=== PATIENT | female | born 1950 | race Caucasian/White ===

== ENCOUNTER 2016-08-05 13:57 | Outpatient (CLI) | payer MEDICARE, OTHER | END 2016-08-05 13:58 | disposition home or self-care (01) | DX: I48.1 Persistent atrial fibrillation (principal); Z79.01 Long term (current) use of anticoagulants ==

== ENCOUNTER 2016-08-12 11:19 | Outpatient (CLI) | payer MEDICARE, OTHER | END 2016-08-12 11:20 | disposition home or self-care (01) | DX: Z79.01 Long term (current) use of anticoagulants (principal); I48.1 Persistent atrial fibrillation ==

== ENCOUNTER 2016-08-29 12:56 | Outpatient (CLI) | payer MEDICARE, OTHER | END 2016-08-29 12:57 | disposition home or self-care (01) | DX: I48.1 Persistent atrial fibrillation (principal); Z79.01 Long term (current) use of anticoagulants ==

== ENCOUNTER 2016-09-05 12:35 | Outpatient (CLI) | payer MEDICARE, OTHER | END 2016-09-05 12:36 | disposition home or self-care (01) | DX: Z79.01 Long term (current) use of anticoagulants (principal); I48.1 Persistent atrial fibrillation ==

== ENCOUNTER 2016-09-30 12:31 | Outpatient (CLI) | payer MEDICARE, OTHER | END 2016-09-30 12:32 | disposition home or self-care (01) | DX: I48.1 Persistent atrial fibrillation (principal); Z79.01 Long term (current) use of anticoagulants ==

== ENCOUNTER 2016-10-07 12:51 | Outpatient (CLI) | payer MEDICARE, OTHER | END 2016-10-07 12:52 | disposition home or self-care (01) | DX: I48.1 Persistent atrial fibrillation (principal); Z79.01 Long term (current) use of anticoagulants ==

== ENCOUNTER 2016-10-16 12:37 | Outpatient (CLI) | payer MEDICARE, OTHER | END 2016-10-16 12:38 | disposition home or self-care (01) | DX: I48.1 Persistent atrial fibrillation (principal); Z79.01 Long term (current) use of anticoagulants ==

== ENCOUNTER 2016-10-30 13:04 | Outpatient (CLI) | payer MEDICARE, OTHER | END 2016-10-30 13:05 | disposition home or self-care (01) | DX: I48.1 Persistent atrial fibrillation (principal); Z79.01 Long term (current) use of anticoagulants ==

== ENCOUNTER 2016-11-03 12:37 | Outpatient (CLI) | payer MEDICARE, OTHER | END 2016-11-03 12:38 | disposition home or self-care (01) | DX: I48.1 Persistent atrial fibrillation (principal); Z79.01 Long term (current) use of anticoagulants ==

== ENCOUNTER 2016-11-13 11:15 | Outpatient (CLI) | payer MEDICARE, OTHER | END 2016-11-13 11:16 | disposition home or self-care (01) | DX: Z79.01 Long term (current) use of anticoagulants (principal); I48.1 Persistent atrial fibrillation ==

== ENCOUNTER 2016-11-24 10:14 | Outpatient (CLI) | payer MEDICARE, OTHER | END 2016-11-24 10:15 | disposition home or self-care (01) | DX: Z79.01 Long term (current) use of anticoagulants (principal); I48.0 Paroxysmal atrial fibrillation ==

== ENCOUNTER 2016-12-11 08:00 | Outpatient (CLI) | payer MEDICARE, OTHER | END 2016-12-11 08:01 | disposition home or self-care (01) | DX: Z79.01 Long term (current) use of anticoagulants (principal); I48.1 Persistent atrial fibrillation ==

== ENCOUNTER 2017-01-05 12:42 | Outpatient (CLI) | payer MEDICARE, OTHER ==
[2017-01-05 18:12] LABS: INR 2.4 (0.8-1.2); PT - PROTHROMBIN TIME 26.8 secs (9.9-12.6)
== END 2017-01-05 12:43 | disposition home or self-care (01) ==
LOC: LAB.F 12:42
PROVIDERS: ATTEND Pharmacist
DX: Z79.01 Long term (current) use of anticoagulants (principal)
CPT/HCPCS: 36415; 85610

== ENCOUNTER 2017-01-28 09:07 | Outpatient (CLI) | payer MEDICARE, OTHER ==
[2017-01-28 18:36] LABS: INR 1.7 (0.8-1.2); PT - PROTHROMBIN TIME 19.6 secs (9.9-12.6)
== END 2017-01-28 09:08 | disposition home or self-care (01) ==
LOC: LAB.F 09:07
PROVIDERS: ATTEND Pharmacist
DX: Z79.01 Long term (current) use of anticoagulants (principal)
CPT/HCPCS: 36415; 85610

== ENCOUNTER 2017-02-19 12:58 | Outpatient (CLI) | payer MEDICARE, OTHER ==
[2017-02-19 18:46] LABS: INR 1.9 (0.8-1.2); PT - PROTHROMBIN TIME 21.2 secs (9.9-12.6)
== END 2017-02-19 12:59 | disposition home or self-care (01) ==
LOC: LAB.F 12:58
PROVIDERS: ATTEND Pharmacist
DX: Z79.01 Long term (current) use of anticoagulants (principal); I48.1 Persistent atrial fibrillation
CPT/HCPCS: 36415; 85610

== ENCOUNTER 2017-03-23 13:50 | Outpatient (CLI) | payer MEDICARE, OTHER ==
[2017-03-23 18:01] LABS: PT - PROTHROMBIN TIME 45.4 secs (9.9-12.6)
== END 2017-03-23 13:51 | disposition home or self-care (01) ==
LOC: LAB.F 13:50
PROVIDERS: ATTEND Pharmacist
DX: Z79.01 Long term (current) use of anticoagulants (principal)
CPT/HCPCS: 36415; 85610

== ENCOUNTER 2017-04-02 08:41 | Outpatient (CLI) | payer MEDICARE, OTHER ==
[2017-04-02 10:41] LABS: INR 2.7 (0.8-1.2); PT - PROTHROMBIN TIME 30.5 secs (9.9-12.6)
== END 2017-04-02 08:42 | disposition home or self-care (01) ==
LOC: LAB.F 08:41
PROVIDERS: ATTEND Pharmacist
DX: Z79.01 Long term (current) use of anticoagulants (principal)
CPT/HCPCS: 36415; 85610

== ENCOUNTER 2017-04-16 14:31 | Outpatient (CLI) | payer MEDICARE, OTHER ==
[2017-04-16 18:00] LABS: INR 1.9 (0.8-1.2); PT - PROTHROMBIN TIME 21.2 secs (9.9-12.6)
== END 2017-04-16 14:32 | disposition home or self-care (01) ==
LOC: LAB.F 14:31
PROVIDERS: ATTEND Pharmacist
DX: I48.1 Persistent atrial fibrillation (principal); Z79.01 Long term (current) use of anticoagulants
CPT/HCPCS: 36415; 85610

== ENCOUNTER 2017-04-24 10:57 | Outpatient (CLI) | payer MEDICARE, OTHER ==
[2017-04-24 18:20] LABS: INR 1.6 (0.8-1.2); PT - PROTHROMBIN TIME 18.7 secs (9.9-12.6)
== END 2017-04-24 10:58 | disposition home or self-care (01) ==
LOC: LAB.F 10:57
PROVIDERS: ATTEND Pharmacist
DX: Z79.01 Long term (current) use of anticoagulants (principal); I48.1 Persistent atrial fibrillation
CPT/HCPCS: 36415; 85610

== ENCOUNTER 2017-05-11 13:39 | Outpatient (CLI) | payer MEDICARE, OTHER ==
[2017-05-11 17:55] LABS: INR 4.4 (0.8-1.2); PT - PROTHROMBIN TIME 50.3 secs (9.9-12.6)
== END 2017-05-11 13:40 | disposition home or self-care (01) ==
LOC: LAB.F 13:39
PROVIDERS: ATTEND Pharmacist
DX: Z79.01 Long term (current) use of anticoagulants (principal); I48.1 Persistent atrial fibrillation
CPT/HCPCS: 36415; 85610

== ENCOUNTER 2017-05-19 12:52 | Outpatient (CLI) | payer MEDICARE, OTHER ==
[2017-05-19 18:12] LABS: INR 2.1 (0.8-1.2); PT - PROTHROMBIN TIME 23.7 secs (9.9-12.6)
== END 2017-05-19 12:53 | disposition home or self-care (01) ==
LOC: LAB.F 12:52
PROVIDERS: ATTEND Pharmacist
DX: Z79.01 Long term (current) use of anticoagulants (principal); I48.1 Persistent atrial fibrillation
CPT/HCPCS: 36415; 85610

== ENCOUNTER 2019-12-25 21:57 | Outpatient (CLI) | payer MEDICARE, OTHER | END 2019-12-25 21:58 | disposition home or self-care (01) | LOC: EMS 21:57 | PROVIDERS: ATTEND Surgery | DX: R06.00 Dyspnea, unspecified (principal); R51 Headache | CPT/HCPCS: A0425; A0429 ==

== ENCOUNTER 2019-12-25 22:31 | Emergency (ER) | payer MEDICARE, OTHER ==
--- NOTE | 2019-12-25 22:40 | ED Physician Documentation ---
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 patient was gardening this evening. upon standing up, she became lightheaded and had dizziness, felt like she might pass out. She describes shortness of breath and midline chest pressure along with diaphoresis. She walked into her house, but had to stop every few steps due to the symptoms, particularly the shortness of breath (also noting the chest pressure was worse with exertion). By the time of ED arrival, symptoms have resolved without specific intervention She took aspirin earlier in the day due to a right-sided headache she has had for a few days. She also notes she fell approximately 10 days ago, tripped and fell and struck her head on the ground. Denies LOC, IVORY developed later that day Review of Systems Constitutional: denies: Fever, Chills, Myalgias, Sweats Cardiac: reports: Chest pain / pressure (resolved). denies: Palpitations, Pedal edema, Calf pain Respiratory: reports: Dyspnea. denies: Cough, Hemoptysis, Wheezing GI: reports: Reviewed and negative Musculoskeletal: reports: Reviewed and negative Neurologic: reports: Generalized weakness (resolved), Headache, Head injury. 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 Cardiovascular: Valve replacement - Present Medications Home Medications: Ambulatory Orders Medication Instructions Recorded Confirmed Bupropion HCl [Bupropion Xl] 300 mg PO DAILY 03/05/13 12/26/19 Rosuvastatin [Crestor] 40 mg PO QPM 03/05/13 12/26/19 Sotalol HCl [Sotalol] 80 mg PO BID 03/05/13 12/26/19 Apixaban [Eliquis] 5 mg PO BID 12/25/19 12/26/19 Cholecalciferol [Vitamin D3] 1,000 unit PO DAILY 12/26/19 12/26/19 Cyanocobalamin (Vitamin B-12) 1,000 mcg PO DAILY 12/26/19 12/26/19 [Vitamin B-12] SUMAtriptan [Imitrex] 100 mg PO DAILY PRN 12/26/19 12/26/19 Sertraline HCl 200 mg PO DAILY 12/26/19 12/26/19 - Allergies Allergies/Adverse Reactions: Allergies Allergy/AdvReac Type Severity Reaction Status Date / Time erythromycin base Allergy Rash Verified 12/26/19 05:44 [Erythromycin Base] prochlorperazine maleate * Allergy tongue Verified 12/26/19 05:44 [From Compazine] swelling quinidine Allergy fever Verified 12/26/19 05:44 SNRI AdvReac Unknown Uncoded 12/26/19 05:44 - Social History Does the pt smoke?: No Smoking Status: Never smoker Does the pt drink ETOH?: Yes Does the pt have substance abuse?: No - POLST Patient has POLST: No PD ED PE NORMAL - Vitals Vital signs reviewed: Yes - General General: Alert and oriented X 3, No acute distress, Well developed/nourished - HEENT HEENT: Atraumatic, PERRL, EOMI, Moist mucous membranes - Neck Neck: Supple, no meningeal sign - Cardiac Cardiac: No murmur, No gallop, No rub - Respiratory Respiratory: No respiratory distress, Clear bilaterally - Abdomen Abdomen: Soft, Non tender - Derm Derm: Normal color, Warm and dry - Extremities Extremities: No edema - Neuro Neuro: Alert and oriented X 3, 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, No motor deficit, No sensory deficit, Normal speech Eye Opening: Spontaneous Motor: Obeys Commands Verbal: Oriented GCS Score: 15 PD ED PE EXPANDED - Cardiac Cardiac: Regular Rate, Irregularly irregular Results - Vitals Vitals: Vital Signs - 24 hr 12/25/19 12/25/19 12/25/19 22:42 22:55 23:05 Temperature 37 C Heart Rate 94 97 92 Respiratory 18 26 H 19 Rate Blood Pressure 166/118 H 166/118 H 127/77 O2 Saturation 95 96 96 12/26/19 12/26/19 12/26/19 00:18 01:15 02:00 Temperature 36.3 C L Heart Rate 86 83 Respiratory 15 16 Rate Blood Pressure 143/100 H 127/89 H O2 Saturation 98 98 12/26/19 12/26/19 12/26/19 03:21 04:11 04:47 Temperature 36.7 C Heart Rate 80 79 86 Respiratory 20 19 16 Rate Blood Pressure 149/82 H 122/72 146/115 H O2 Saturation 99 99 100 12/26/19 12/26/19 12/26/19 05:51 06:10 06:48 Temperature 36.7 C 36.7 C 36.5 C Heart Rate 73 72 83 Respiratory 16 22 15 Rate Blood Pressure 134/85 H 148/97 H 184/81 H O2 Saturation 98 98 100 Oxygen O2 Source Room air - EKG (time done) No standard instances Rate: Rate (enter#) (88) Rhythm: Atrial flutter, Atrial fibrillation [place]: Normal Ischemia: ST depression (V4-V6, I, aVL) - Labs Labs: Laboratory Tests 12/25/19 12/25/19 12/25/19 21:58 21:58 21:58 WBC 10.3 RBC 4.63 Hgb 13.8 Hct 41.6 MCV 89.8 MCH 29.8 MCHC 33.2 RDW 13.4 Plt Count 282 MPV 9.8 Neut # (Auto) 7.5 H Lymph # (Auto) 1.7 [place] # (Auto) 1.0 Eos # (Auto) 0.1 Baso # (Auto) 0.1 Absolute Nucleated RBC 0.00 Nucleated RBC % 0.0 D-Dimer Sodium 138 Potassium 3.7 Chloride 106 Carbon Dioxide 22 Anion Gap 10.0 BUN 23 H Creatinine 1.1 H Estimated GFR (MDRD) 49 L Glucose 111 H Calcium 9.2 Total Bilirubin 0.6 AST 18 ALT 13 Alkaline Phosphatase 114 Troponin I High Sens 13.9 B-Natriuretic Peptide Total Protein 7.7 Albumin 4.0 Globulin 3.7 Albumin/Globulin Ratio 1.1 Lipase 38 12/25/19 12/25/19 12/26/19 21:58 23:12 03:07 WBC RBC Hgb Hct MCV MCH MCHC RDW Plt Count MPV Neut # (Auto) Lymph # (Auto) [place] # (Auto) Eos # (Auto) Baso # (Auto) Absolute Nucleated RBC Nucleated RBC % D-Dimer 201.8 Sodium Potassium Chloride Carbon Dioxide Anion Gap BUN Creatinine Estimated GFR (MDRD) Glucose Calcium Total Bilirubin AST ALT Alkaline Phosphatase Troponin I High Sens 21.7 H* B-Natriuretic Peptide 61 Total Protein Albumin Globulin Albumin/Globulin Ratio Lipase - Rads (name of study) cxr Radiology: Prelim report reviewed, See rad report CT head Radiology: Prelim report reviewed, See rad report PD MEDICAL DECISION MAKING - ED course Complexity details: reviewed results, re-evaluated patient, considered differential, d/w patient ED course: Patient's chief complaint is an episode of midline chest pressure/tightness with dyspnea, lightheadedness, and diaphoresis that lasted nearly 1 hour but 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 During ED evaluation, she also describes right-sided headache which has been intermittent x few days. She also says she fell approximately 10 days ago, striking her face on the ground. Considering this, and that she is on eliquis, CT head performed and this has no acute abnormalities. D/W Dr. 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 Her repeat high sensitivity troponin is 21.7, up from 13.9, representing a marginal delta. However, she has a concerning HPI and high HEART score. She was walked up/down ED hallway and initially reported no recurrence of symptoms but when I spoke with her again, she said she did have some tightness in her throat when she was walking in the hallway. Dr. Sanchez called back and recommends transfer to , hospitalist service. Recommends PO aspirin, and this was given. I d/w Dr. Zafar (hospitalist at ), also recommends 40mg PO lipitor, and this was also given. Departure - Departure Disposition: 02 Transfer Acute Care Hosp Clinical Impression: Chest pain Qualifiers: Chest pain type: unspecified Qualified Code(s): R07.9 - Chest pain, unspecified Condition: Stable Discharge Date/Time: 12/26/19 06:50
[2019-12-25 23:10] LABS: BASOPHILS # (AUTO) 0.1 10^3/uL (0.0-0.1); BASOPHILS % (AUTO) 0.6 %; EOSINOPHILS # (AUTO) 0.1 10^3/uL (0.0-0.7); EOSINOPHILS % (AUTO) 0.8 %; HGB - HEMOGLOBIN 13.8 g/dL (12.0-16.0); LYMPHOCYTES # (AUTO) 1.7 10^3/uL (1.5-3.5); LYMPHOCYTES % (AUTO) 16.5 %; MEAN CORPUSCULAR HEMOGLOBIN 29.8 pg (27.0-31.0); MEAN CORPUSCULAR HGB CONC 33.2 g/dL (32.0-36.0); MEAN CORPUSCULAR VOLUME 89.8 fL (81.0-99.0); MEAN PLATELET VOLUME 9.8 fL (7.9-10.8); MONOCYTES % (AUTO) 9.4 %; NEUTROPHILS # (AUTO) 7.5 10^3/uL (1.5-6.6); NEUTROPHILS % (AUTO) 72.2 %; PLT - PLATELET COUNT 282 10^3/uL (130-450); RED BLOOD COUNT 4.63 10^6/uL (4.20-5.40); RED CELL DISTRIBUTION WIDTH 13.4 % (12.0-15.0); WHITE BLOOD COUNT 10.3 x10^3/uL (4.8-10.8)
[2019-12-25 23:23] LABS: ALBUMIN/GLOBULIN RATIO 1.1 (1.0-2.2); BILIRUBIN,TOTAL 0.6 mg/dL (0.2-1.0); CALCIUM 9.2 mg/dL (8.5-10.3); CREATININE 1.1 mg/dL (0.4-1.0); TOTAL PROTEIN 7.7 g/dL (6.7-8.2)
--- NOTE | 2019-12-25 23:46 | XRAY Report ---
Reason: Chest Pain Procedure Date: 12/25/2019 Accession Number: [id number] / [id number] Procedure: XR - Chest 1 View X-Ray CPT Code: 33853 Final Report FULL RESULT: EXAM: CHEST RADIOGRAPHY EXAM DATE: 12/25/2019 10:54 PM. CLINICAL HISTORY: Chest Pain. COMPARISON: XR CHEST PA AND LAT 12/09/2006 12:55 PM. PCXR 01/25/2007 12:50 PM. TECHNIQUE: 1 view. FINDINGS: Lungs/Pleura: No overt edema. No focal pneumonia. No gross pneumothorax or large effusion. Mediastinum: Heart size within normal limits. No mediastinal shift. Other: Previous median sternotomy. IMPRESSION: No acute process seen in the chest. RADIA
[2019-12-26] MEDS ORDERED: SUMAtriptan 6 MG/0.5 ML VIAL SUBQ STA (00:53)
--- NOTE | 2019-12-26 02:07 | CT Report ---
Reason: headache, recent fall, on eliquis Procedure Date: 12/26/2019 Accession Number: [id number] / [id number] Procedure: CT - HEAD WO CPT Code: Final Report FULL RESULT: EXAM: CT HEAD EXAM DATE: 12/26/2019 01:42 AM. CLINICAL HISTORY: Headache, recent fall, on eliquis. COMPARISON: None. TECHNIQUE: Multiaxial CT images were obtained from the foramen magnum to the vertex. Reformats: Sagittal and coronal. IV contrast: None. In accordance with CT protocol optimization, one or more of the following dose reduction techniques were utilized for this exam: automated exposure control, adjustment of mA and/or KV based on patient size, or use of iterative reconstructive technique. FINDINGS: Parenchyma: No intraparenchymal hemorrhage. No evidence of mass, midline shift, or CT findings of acute infarction. Smith-white differentiation is distinct. Extraaxial Spaces: Normal for age. No subdural or epidural collections identified. Ventricles: Normal in size and position. Sinuses and Orbits: Imaged paranasal sinuses, orbits, and mastoids show no significant abnormality. Bones: No evidence of fracture or calvarial defect. Other: None. IMPRESSION: No acute changes within the brain. RADIA
[2019-12-26] MEDS ORDERED: ASPIRIN CHEW 81 MG TABLET PO STA (05:00)
[2019-12-26] MEDS ORDERED: ATORVASTATIN 40 MG TABLET PO STA (05:01)
[2019-12-26 06:50] VITALS: BP 184/81
== END 2019-12-26 06:50 | disposition short-term general hospital (02) ==
LOC: ED 22:31
DX: R07.89 Other chest pain (principal); R79.89 Other specified abnormal findings of blood chemistry; R51 Headache; I48.91 Unspecified atrial fibrillation; Z79.01 Long term (current) use of anticoagulants; Z91.81 History of falling; I10 Essential (primary) hypertension
CPT/HCPCS: 36415; 70450; 71045; 80053; 83690; 83880; 84484; 85025; 85379; 93005; 96372; 99284; 99285; A9270

== ENCOUNTER 2019-12-26 06:53 | Outpatient (CLI) | payer MEDICARE, OTHER | END 2019-12-26 06:54 | disposition short-term general hospital (02) | LOC: EMS 06:53 | PROVIDERS: ATTEND Surgery | DX: R07.9 Chest pain, unspecified (principal) | CPT/HCPCS: A0425; A0428 ==

== ENCOUNTER 2020-01-19 11:49 | Outpatient (CLI) | payer MEDICARE, OTHER ==
[2020-01-19 15:15] LABS: BILIRUBIN,URINE NEGATIVE (NEGATIVE); GLUCOSE, URINE (UA) NEGATIVE (NEGATIVE); KETONES,URINE (UA) NEGATIVE (NEGATIVE); LEUKOCYTE ESTERASE, URINE NEGATIVE (NEGATIVE); NITRITE,URINE POSITIVE (NEGATIVE); OCCULT BLOOD,URINE NEGATIVE (NEGATIVE); PROTEIN,URINE NEGATIVE (NEGATIVE); UROBILINOGEN,URINE 0.2 (NORMAL) E.U./dL (NORMAL)
[2020-01-19 15:17] LABS: CLARITY,URINE HAZY (CLEAR)
== END 2020-01-19 11:50 | disposition home or self-care (01) ==
LOC: LAB.S 11:49
PROVIDERS: ATTEND Internal Medicine
DX: R39.15 Urgency of urination (principal)
CPT/HCPCS: 81003

== ENCOUNTER 2020-12-27 17:05 | Outpatient (CLI) | payer MEDICARE, OTHER | END 2020-12-27 17:06 | disposition critical access hospital (66) | LOC: EMS 17:05 | DX: Z04.3 Encounter for examination and observation following other accident (principal); R42 Dizziness and giddiness; R11.0 Nausea; M25.531 Pain in right wrist | CPT/HCPCS: A0425; A0427 ==

== ENCOUNTER 2020-12-27 17:28 | Emergency (ER) | payer MEDICARE, OTHER ==
--- OUTSIDE RECORDS SUMMARY | 2020-12-27 18:26 | EXTERNAL MEDICAL SUMMARY RPT | Continuity of Care Document ---
:1950 Demographics Phone Unavailable Preferred Language Unknown Marital Status Unknown Orthodox Affiliation Unknown Race Unknown Ethnic Group Unknown Author Organization [facility] Address [address] [place] [address] Phone Allergies Encounters Medications Problems Results
--- NOTE | 2020-12-27 18:33 | XRAY Report ---
PROCEDURE: Wrist 4 View RT INDICATIONS: fall dorsal pain and swelling TECHNIQUE: 4 views of the wrist were acquired. COMPARISON: None FINDINGS: Bones: Comminuted, impacted distal radius fracture extending to articular surface. Associated ulnar s tyloid avulsion. No suspicious bony lesions. Scaphoid view: Scaphoid intact. Soft tissues: No suspicious soft tissue calcifications. IMPRESSION: Comminuted, impacted distal radius fracture extending to the articular surface with associated ulnar styloid avulsion. Reviewed by: Dc Oh MD on 12/27/2020 6:32 PM PDT Approved by: Dc Oh MD on 12/27/2020 6:32 PM PDT Station ID: [id number]
--- NOTE | 2020-12-27 18:34 | CT Report ---
PROCEDURE: HEAD WO INDICATIONS: head injury TECHNIQUE: Noncontrast 4.5 mm thick angled axial sections acquired from the foramen magnum to the vertex. For r adiation dose reduction, the following was used: automated exposure control, adjustment of mA and/or kV according to patient size. COMPARISON: None. FINDINGS: Image quality: Excellent. CSF spaces: Basal cisterns are patent. No extra-axial fluid collections. Ventricles are normal in size and shape. Brain: No midline shift. No intracranial masses or hemorrhage. Smith-white matter interface is norm al. Skull and face: Calvarium and visualized facial bones are intact, without suspicious lesions. Sinuses: Visualized sinuses and mastoids are clear. IMPRESSION: 1. No evidence of acute stroke, hemorrhage, or mass. 2. No evidence of significant sequelae of acute intracranial trauma. Reviewed by: Dc Oh MD on 12/27/2020 6:33 PM PDT Approved by: Dc Oh MD on 12/27/2020 6:33 PM PDT Station ID: [id number]
[2020-12-27] MEDS ORDERED: ACETAMINOPHEN 325 MG TABLET PO STA (18:45)
--- NOTE | 2020-12-27 18:49 | ED Physician Documentation ---
History of Present Illness - Stated complaint Stated Complaint: FALL - Chief complaint Chief Complaint: Trauma Ext - History obtained from History obtained from: Patient, EMS - Additonal information Additional information: Patient comes emergency department chief complaint of right wrist pain after ground-level fall. Patient states she fell on a compact dirt surface, and caught herself with her right outstretched hand, but does not remember hitting her head. However, she cannot be sure. Patient does take Eliquis. No other complaints at this time. No spinal pain at any level. No rib pain or difficulty breathing. No hip pain. Patient was ambulatory after the incident. 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 Cardiovascular: Valve replacement - Present Medications Home Medications: Ambulatory Orders Medication Instructions Recorded Confirmed Bupropion HCl [Bupropion Xl] 300 mg PO DAILY 03/05/13 12/27/20 Rosuvastatin [Crestor] 40 mg PO QPM 03/05/13 12/27/20 Sotalol HCl [Sotalol] 80 mg PO BID 03/05/13 12/27/20 Apixaban [Eliquis] 5 mg PO BID 12/25/19 12/27/20 Cholecalciferol [Vitamin D3] 1,000 unit PO DAILY 12/26/19 12/27/20 Cyanocobalamin (Vitamin B-12) 1,000 mcg PO DAILY 12/26/19 12/27/20 [Vitamin B-12] SUMAtriptan [Imitrex] 100 mg PO DAILY PRN 12/26/19 12/27/20 Sertraline HCl 200 mg PO DAILY 12/26/19 12/27/20 HYDROcod/ACETAM 5/325 [[place] 5/325] 1 - 2 tablet PO Q6H PRN #14 tablet 12/27/20 - Allergies Allergies/Adverse Reactions: Allergies Allergy/AdvReac Type Severity Reaction Status Date / Time erythromycin base Allergy Rash Verified 12/26/19 05:44 [Erythromycin Base] prochlorperazine maleate * Allergy tongue Verified 12/26/19 05:44 [From Compazine] swelling quinidine Allergy fever Verified 12/26/19 05:44 SNRI AdvReac Unknown Uncoded 12/26/19 05:44 - Social History Does the pt smoke?: No Smoking Status: Never smoker Does the pt drink ETOH?: Yes Does the pt have substance abuse?: No - POLST Patient has POLST: No Results - Vitals Vitals: Oxygen O2 Source Room air - Rads (name of study) R wrist XR Radiology: Final report received, EMP read indepedently, See rad report (Comminuted distal radius fracture with ulnar styloid avulsion.) CT head Radiology: Final report received, EMP read indepedently, See rad report (neg) Procedures - Splint (location) R forearm Splint applied by: Tech Type of splint: Fiberglass, Sugar tong Other: Patient tolerated well, No complications, Neurovascular intact, Sling provided PD MEDICAL DECISION MAKING - ED course Complexity details: reviewed results, re-evaluated patient, considered differential, d/w patient ED course: Patient was evaluated with an x-ray of her right wrist and a CT scan of her head. CT was unremarkable. X-ray showed a distal radius fracture which was comminuted but not significantly displaced. The patient was placed in a sugar tong splint in the emergency department. I recommended orthopedic follow-up within the week so that patient can be evaluated further and can be determine whether she needs surgery or just casting. We discussed pain control at home and the usual indications for return Departure - Departure Disposition: 01 Home, Self Care Clinical Impression: Distal radius fracture, right Qualifiers: Encounter type: initial encounter Fracture type: closed Fracture morphology: unspecified fracture morphology Qualified Code(s): S52.501A - Unspecified fracture of the lower end of right radius, initial encounter for closed fracture Condition: Stable Instructions: ED Fx Wrist General Follow-Up: Frandy Huber MD [Provider Admit Priv/Credential] - Gokul Garrido MD [Provider Admit Priv/Credential] - Prescriptions: HYDROcod/ACETAM 5/325 [[place] 5/325] 1 - 2 tablet PO Q6H PRN #14 tablet PRN Reason: Pain Comments: Your head CT looks good. Your wrist x-ray shows a break of the radius (larger of two forearm bones). You have been placed in a splint for this today, but will need to see orthopedics within a week for casting and re-evaluation to determine whether surgical intervention would provide benefit. You may take either Tylenol or the stronger medication prescribed, every 6 hours as needed for pain. Discharge Date/Time: 12/27/20 19:30
[2020-12-27 19:30] VITALS: BP 127/88
== END 2020-12-27 19:30 | disposition home or self-care (01) ==
LOC: EDUNIT# → SUPCPDRO 17:28 → ED 17:28
DX: S52.501A Unspecified fracture of the lower end of right radius, initial encounter for closed fracture (principal); S09.90XA Unspecified injury of head, initial encounter; S60.512A Abrasion of left hand, initial encounter; S60.511A Abrasion of right hand, initial encounter; W18.30XA Fall on same level, unspecified, initial encounter; I10 Essential (primary) hypertension; I48.91 Unspecified atrial fibrillation; Z95.2 Presence of prosthetic heart valve; Z79.01 Long term (current) use of anticoagulants
CPT/HCPCS: 36415; 70450; 73110; 99281; 99284; A9270

== ENCOUNTER 2023-10-16 09:01 | Outpatient (CLI) | payer MEDICARE, OTHER | END 2023-10-16 23:59 | disposition critical access hospital (66) | LOC: EMS 09:01 | DX: R53.1 Weakness (principal); R41.0 Disorientation, unspecified | CPT/HCPCS: A0425; A0427; A0429 ==

== ENCOUNTER 2023-10-16 10:02 | Emergency (ER) | payer MEDICARE, OTHER ==
--- NOTE | 2023-10-16 10:08 | ED Physician Documentation ---
PD HPI FOCAL NEURO - Stated complaint Stated Complaint: TIA - History obtained from History obtained from: Patient, EMS - History of Present Illness Timing - onset: Last night (she felt okay going to sleep, and awoke at 4 am to let her dog out to urinate and noted right arm/leg weak. Difficulty standing and opening sliding door. Went back to bed. Awoke at 8 this moring with mild weak still but able to walk. Tried reading aloud and could not get words out.) Timing - duration: Other (improved after few minutes and could talk by EMS arrival.) Timing - details: Abrupt onset, Now resolved Time of symptom onset unknown: Time of onset unknown (onset was sometime during the night; noted upon awakening.) Severity of deficit: Moderate Weakness: Arm, Leg, Right Numbness: Arm, Leg, Right Associated symptoms: No: Headache, Nausea / vomiting, Fall, Head injury Review of Systems Constitutional: denies: Fever, Chills Neurologic: reports: Altered mental status. denies: Seizure, Headache, Head injury, LOC PD PAST MEDICAL HISTORY - Past Medical History Cardiovascular: Hypertension, High cholesterol, Atrial fibrillation Neuro: CVA (had right weakness for days that then improved to normal over few weeks. Had MRI showing small CVA. Has not had residual weakness nor numbness. This was 2020. ), Other (known aneurysmal area of basal artery; sees neurosurgeron at [facility], also [facility] Neurologist and Cultural Centre Manager there as well. 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 Cardiovascular: Valve replacement - Present Medications Home Medications: Ambulatory Orders Medication Instructions Recorded Confirmed Bupropion HCl [Bupropion Xl] 300 mg PO DAILY 03/05/13 12/27/20 Rosuvastatin [Crestor] 40 mg PO QPM 03/05/13 12/27/20 Sotalol HCl [Sotalol] 80 mg PO BID 03/05/13 12/27/20 Apixaban [Eliquis] 5 mg PO BID 12/25/19 12/27/20 Cholecalciferol [Vitamin D3] 1,000 unit PO DAILY 12/26/19 12/27/20 Cyanocobalamin (Vitamin B-12) 1,000 mcg PO DAILY 12/26/19 12/27/20 [Vitamin B-12] SUMAtriptan [Imitrex] 100 mg PO DAILY PRN 12/26/19 12/27/20 Sertraline HCl 200 mg PO DAILY 12/26/19 12/27/20 HYDROcod/ACETAM 5/325 [[place] 5/325] 1 - 2 tablet PO Q6H PRN #14 tablet 12/27/20 Apixaban [Eliquis] 5 mg PO BID #30 tablet 10/16/23 - Allergies Allergies/Adverse Reactions: Allergies Allergy/AdvReac Type Severity Reaction Status Date / Time erythromycin base Allergy Rash Verified 10/16/23 10:09 [Erythromycin Base] prochlorperazine maleate * Allergy tongue Verified 10/16/23 10:09 [From Compazine] swelling quinidine Allergy fever Verified 10/16/23 10:09 SNRI AdvReac Unknown Uncoded 10/16/23 10:09 - Social History Does the pt smoke?: No Smoking Status: Never smoker Does the pt drink ETOH?: Yes Does the pt have substance abuse?: No - POLST Patient has POLST: No PD ED PE NORMAL - Vitals Vital signs reviewed: Yes - General General: Alert and oriented X 3, No acute distress, Well developed/nourished - HEENT HEENT: Moist mucous membranes, Pharynx benign - Neck Neck: Supple, no meningeal sign, No adenopathy, No bruit - Cardiac Cardiac: No: RRR (irregular but rate 60s-70s.) - Respiratory Respiratory: No respiratory distress, Clear bilaterally - Abdomen Abdomen: Normal bowel sounds, Soft, Non tender, No organomegaly - Back Back: No CVA TTP - Derm Derm: Normal color, Warm and dry - Neuro Neuro: Alert and oriented X 3, 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, No motor deficit, No sensory deficit, Normal speech Eye Opening: Spontaneous Motor: Obeys Commands Verbal: Oriented GCS Score: 15 NIHSS - Level of Consciousness Level of consciousness: (0) Alert, Keenly responsive LOC Questions: (0) Answers both Q's correct LOC Commands: (0) Performs both correctly - Gaze Best Gaze: (0) Normal - Visual Visual: (0) No loss - Facial Palsy Facial Palsy: (0) Normal, symmetrical movement - Motor Arms (both separate) Motor Arm (right): (0) No drift Motor Arm (left): (0) No drift - Motor Legs (both separate) Motor Leg (right): (0) No drift Motor Leg (left): (0) No drift - Limb Ataxia Limb Ataxia: (0) Absent - Sensory Sensory: (0) Normal - Best Language Best Language: (0) No aphasia - Dysarthria Dysarthria: (0) Normal - Extinction and Inattention (formally neg Extinction and inattention: (0) No abnormality - Total Score/Results Total Score/Result: 0 Results - Vitals Vitals: Vital Signs - 24 hr 10/16/23 10/16/23 10/16/23 10:09 10:14 12:14 Temperature 36.8 C 36.8 C Heart Rate 72 72 60 Respiratory 16 18 16 Rate Blood Pressure 160/86 H 160/86 H 160/80 H O2 Saturation 98 98 94 10/16/23 10/16/23 10/16/23 14:00 16:00 18:00 Temperature 36.8 C 36.8 C Heart Rate 60 62 60 Respiratory 14 22 16 Rate Blood Pressure 158/68 H 130/88 H 129/88 H O2 Saturation 98 100 94 Oxygen O2 Source Room air - EKG (time done) 11:14 EKG releavant findings:: EKG personally interpreted by author of this note. Relevant findings are: Rate: Rate (enter#) (59) Rhythm: Atrial fibrillation QRS: Normal Ischemia: Normal ST segments, ST depression (mild leads V3-V6.). No: ST elevation c/w ischemia - Labs Labs: Laboratory Tests 10/16/23 10/16/23 11:00 11:00 WBC 6.7 RBC 4.55 Hgb 12.9 Hct 40.9 MCV 89.9 MCH 28.4 MCHC 31.5 L RDW 14.1 Plt Count 226 MPV 9.4 Neut # (Auto) 4.8 Lymph # (Auto) 1.1 L [place] # (Auto) 0.6 Eos # (Auto) 0.1 Baso # (Auto) 0.0 Absolute Nucleated RBC 0.00 Nucleated RBC % 0.0 Sodium 138 Potassium 4.0 Chloride 107 Carbon Dioxide 25 Anion Gap 6.0 BUN 23 H Creatinine 1.0 Estimated GFR (MDRD) 54 L Glucose 102 Calcium 9.3 Magnesium 1.9 Total Bilirubin 0.5 AST 14 ALT 8 L Alkaline Phosphatase 103 C-Reactive Protein < 0.5 Total Protein 7.1 Albumin 3.9 Globulin 3.2 Albumin/Globulin Ratio 1.2 Lipase 59 - Rads (name of study) head CT Relevant Findings:: Prelim report reviewed (age related volume loss. No acute bleeding, mass, swelling.), EMP independent interpretation of test neck/head angio Relevant Findings:: Prelim report reviewed (no significant stenoses. $ mm apparent aneurysm dilation at takeoff of the basal artery left. ) brain MRI Relevant Findings:: Prelim report reviewed (2 injury areas at periopheral area of posterior temporal and parietal areas. Small lesions. No bleeding. Noted again is left basal artery 4 mm aneurysmal feature. ) PD Medical Decision Making - ED course Complexity details: reviewed results (had neuro symptoms that resolved. CT and CTA are okay without new findings. So able to tell no time-limited interventions (was still in 12 hours window for LVO retrieval). Ordered brain MRI which be could be gotten in 3-4 hours. This would be best to eval for small CVA, other lesions. ), considered differential, d/w patient Reviewed Lab Results: pt with chronic rate controlled atrial fib, not on DOAC. Used to be on Eliquis but discontinued due to expense. just baby ASA daily with her other meds now. Given the location and size of the 2 lesions, Radiology report suggests embolic is of concern. So rather than adding Plavix, I would add coverage for clots from atria. to resume the Eliquis and she is agreeable. Will call office of her Cultural Centre Manager, Neurologist, and Neurosurgery on Thursday. Departure - Departure Disposition: Home, Self Care Clinical Impression: Acute CVA (cerebrovascular accident), Chronic atrial fibrillation Condition: Stable Record reviewed to determine appropriate education?: Yes Instructions: ED Stroke Completed Follow-Up: Ondina Wheeler MD [Primary Care Provider] - James Sanchez MD [Physician No Access] - STEPHON VALLE MD [Physician No Access] - Prescriptions: Apixaban [Eliquis] 5 mg PO BID #30 tablet Comments: Your CT scan did not show any signs of bleeding, tumors, significant blockages of blood flow. There was a small dilation of a blood vessel at the basilar artery concerning for a small aneurysm, 4 mm. You could check with your neurosurgeon if this is what spanned previously evaluated but it sounds likely to be. It is not blocking the blood flow and there is no signs of bleeding around it. The brain MRI did show 2 small areas of stroke in the peripheral area of the parietal and temporal lobes. The strokes are on the left and would account for some trouble with speech as well as the right sided weakness. It is good that your symptoms have improved but there is a small area of injury less than dime sized in those areas. The location and size of these would be more concerning for embolic causes and in the setting of your atrial fibrillation that could be coming from the atrial heart chambers. As such I would suggest for now to start the Eliquis 5 mg twice daily. I sent a prescription to the [facility] in [place]. Contact your neurologist and paste plant supervisor at [facility] on Thursday and see that timeframe they would like for follow-ups and if they concur with the treatment plan. Otherwise continue your other usual medicines including the baby aspirin for now. Stay well-hydrated. Return if worsening symptoms again. Forms: PCP List Discharge Date/Time: 10/16/23 18:45
[2023-10-16] MEDS ORDERED: iohexoL-300 100 ML VIAL ONE (10:56)
[2023-10-16 11:11] LABS: BASOPHILS % (AUTO) 0.5 %; EOSINOPHILS # (AUTO) 0.1 10^3/uL (0.0-0.7); EOSINOPHILS % (AUTO) 1.5 %; HCT - HEMATOCRIT 40.9 % (37.0-47.0); HGB - HEMOGLOBIN 12.9 g/dL (12.0-16.0); LYMPHOCYTES # (AUTO) 1.1 10^3/uL (1.5-3.5); LYMPHOCYTES % (AUTO) 16.8 %; MEAN CORPUSCULAR HEMOGLOBIN 28.4 pg (27.0-31.0); MEAN CORPUSCULAR HGB CONC 31.5 g/dL (32.0-36.0); MEAN CORPUSCULAR VOLUME 89.9 fL (81.0-99.0); MEAN PLATELET VOLUME 9.4 fL (7.9-10.8); MONOCYTES # (AUTO) 0.6 10^3/uL (0.0-1.0); MONOCYTES % (AUTO) 8.7 %; NEUTROPHILS # (AUTO) 4.8 10^3/uL (1.5-6.6); NEUTROPHILS % (AUTO) 72.2 %; PLT - PLATELET COUNT 226 10^3/uL (130-450); RED BLOOD COUNT 4.55 10^6/uL (4.20-5.40); RED CELL DISTRIBUTION WIDTH 14.1 % (12.0-15.0); WHITE BLOOD COUNT 6.7 x10^3/uL (4.8-10.8)
[2023-10-16 11:24] LABS: ALBUMIN 3.9 g/dL (3.2-5.5); ALBUMIN/GLOBULIN RATIO 1.2 (1.0-2.2); ALKALINE PHOSPHATASE 103 IU/L (42-121); ALT ALANINE AMINOTRANSFERASE 8 IU/L (10-60); AST ASPARTATE AMINOTRANSFERASE 14 IU/L (10-42); BILIRUBIN,TOTAL 0.5 mg/dL (0.2-1.0); BUN - BLOOD UREA NITROGEN 23 mg/dL (6-20); CALCIUM 9.3 mg/dL (8.5-10.3); CARBON DIOXIDE - CO2 25 mmol/L (21-32); CHLORIDE 107 mmol/L (101-111); CRP - C-REACTIVE PROTEIN < 0.5 mg/dL (<0.5); GFR - MDRD 54 (>89); GLUCOSE 102 mg/dL (74-104); LIPASE 59 U/L (11-82); MAGNESIUM 1.9 mg/dL (1.7-2.3); SODIUM 138 mmol/L (135-145); TOTAL PROTEIN 7.1 g/dL (6.4-8.9)
[2023-10-16] MEDS: SODIUM CHLORIDE 0.9% 1,000 ML IV STA (11:27)
--- NOTE | 2023-10-16 12:44 | CT Report ---
PROCEDURE: Head WO INDICATIONS: right weakness, aphasia during night and this AM TECHNIQUE: Noncontrast 4.5 mm thick angled axial sections acquired from the foramen magnum to the vertex. For r adiation dose reduction, the following was used: automated exposure control, adjustment of mA and/or kV according to patient size. COMPARISON: 12/27/2020. FINDINGS: Image quality: Excellent. CSF spaces: Basal cisterns are patent. No extra-axial fluid collections. Ventricles are normal in size and shape. Brain: No midline shift. No intracranial masses or hemorrhage. Smith-white matter interface is norm al. Intracranial carotid calcifications. Age-related volume loss and small vessel ischemic change. Skull and face: Calvarium and visualized facial bones are intact, without suspicious lesions. Sinuses: Visualized sinuses and mastoids are clear. IMPRESSION: No acute intracranial pathology. Reviewed by: Dc Oh MD on 10/16/2023 12:43 PM PDT Approved by: Dc Oh MD on 10/16/2023 12:43 PM PDT Station ID: [id number]
[2023-10-16] MEDS: iohexoL-300 100 ML VIAL IVP ONE (12:48)
--- NOTE | 2023-10-16 12:49 | CT Report ---
PROCEDURE: Angio Head/Neck INDICATIONS: episodic right weak/aphasia last night/this am TECHNIQUE: Pre-contrast 4.5 mm thick sections acquired from the foramen magnum to the vertex. After the adminis tration of intravenous contrast, 1 mm thick sections acquired from the aortic arch through the [place] of [place]. Post-contrast 4.5 mm thick sections then re-acquired from the foramen magnum to the vert ex. 3-dimensional cwnuuge-efbfwhupz-kvxbqqrbth (MIP) and/or volume rendering reformats were acquired of the central intracranial vasculature and neck separately. For radiation dose reduction, the foll owing was used: automated exposure control, adjustment of mA and/or kV according to patient size. CONTRAST: See chart COMPARISON: CT head from today FINDINGS: Image quality: Excellent. BRAIN: CSF spaces: Ventricles are normal in size and shape. Basal cisterns are patent. No extra-axial flu id collections. Brain: No midline shift. No intracranial bleeds or masses. Smith-white matter interface appears int act. Skull and face: Calvarium and facial bones appear intact, without suspicious lesions. Orbits appear normal. Sinuses: Sinuses and mastoids are clear. HEAD CT ANGIOGRAPHY: Anterior circulation: Intracranial internal carotid arteries are normal in size and flow. The flow within the paired anterior cerebral arteries is normal and symmetric. The flow within the middle cer ebral arteries is normal and symmetric. The anterior communicating artery is seen. No aneurysms are seen. Posterior circulation: Visualized portions of the vertebral arteries demonstrate normal caliber, and join to form a normal appearing basilar artery. Flow within the posterior cerebral arteries is norm al and symmetric. There is a 4 mm tip of basilar artery aneurysm. NECK CT ANGIOGRAPHY: Carotid system: The great vessels demonstrate a conventional anatomy as they arise from the aortic a h. The origins of the common carotid arteries appear patent. The common carotid arteries demonstr ate normal caliber and courses. The bifurcation regions are both widely patent. The internal caroti d arteries demonstrate normal calibers and courses. Posterior circulation: The origins of the vertebral arteries both appear widely patent. The more cabral perior extracranial portions of both vertebral arteries also demonstrate normal courses and calibers. They join to form a normal appearing basilar artery. The top of the basilar artery has a 4 mm aneur ysm. Soft tissues: Visualized neck soft tissues demonstrate no suspicious abnormalities. Bones: No suspicious bony lesions. Visualized cervical spine appears normally aligned. IMPRESSION: 1. 4 mm tip of the basilar artery aneurysm. 2. Otherwise unremarkable CTA head. No stenosis, occlusion, or focal filling defect. 3. Patent carotids. The estimate of stenosis included in the report of the imaging study was calculated using the NASCET method Reviewed by: Dc Oh MD on 10/16/2023 12:47 PM PDT Approved by: Dc Oh MD on 10/16/2023 12:47 PM PDT Station ID: [id number]
[2023-10-16] MEDS: CLOPIDOGREL 75 MG TABLET PO STA (15:40)
--- NOTE | 2023-10-16 17:41 | MRI Report ---
PROCEDURE: Brain WO INDICATIONS: TIA symptoms overnight and this AM TECHNIQUE: Noncontrast axial T1 spin echo, axial T2 fast spin echo, sagittal and axial FLAIR, coronal T2 fast sp in echo, axial gradient echo, axial diffusion and ADC through the brain. COMPARISON: CTA head and neck 10/16/2023. FINDINGS: Image quality: Excellent. CSF Spaces: Basal cisterns are patent. No extra-axial fluid collections. Ventricles are normal in size and shape. Brain: No intracranial masses or hemorrhage. Smith/white matter interface is normal. Brainstem appe ars normal. Diffusion-weighted images demonstrate foci of hyperintensity within the left posterior p arietal lobe. These areas correspond to hypointense ADC signal. An additional focus is noted in the l eft temporal lobe. Distal basilar aneurysmal dilation is noted that are appreciated on CT exam of 10/01. Scattered areas of gradient hypointensity are present in the left cerebral hemisphere as well as right basal ganglia. Skull and face: Calvarium has normal marrow signal. Orbits appear normal. Sinuses: Sinuses demonstrate minimal scattered areas of mucosal thickening. IMPRESSION: Multiple foci of hyperintense diffusion signal most consistent with acute/subacute ischemia. Given so mewhat peripheral distribution, embolic phenomenon cannot be excluded. Scattered areas of gradient hypointensity as above. These could represent areas of hypertensive micro hemorrhage. However, amyloidosis cannot be definitively excluded given the distribution. Basilar artery aneurysmal dilation better appreciated on CT exam of 10/16/2023. Reviewed by: Christy Treadwell MD on 10/16/2023 5:40 PM PDT Approved by: Christy Treadwell MD on 10/16/2023 5:40 PM PDT Station ID: [id number]
[2023-10-16 18:05] VITALS: BP 129/88; O2SAT 94
[2023-10-16] MEDS: APIXABAN 5 MG TABLET PO STA (18:38)
== END 2023-10-16 18:45 | disposition home or self-care (01) ==
LOC: EDUNIT# → ED 10:02
DX: I63.9 Cerebral infarction, unspecified (principal); R47.02 Dysphasia; G81.91 Hemiplegia, unspecified affecting right dominant side; I48.20 Chronic atrial fibrillation, unspecified
CPT/HCPCS: 36415; 70450; 70496; 70498; 70551; 80053; 83690; 83735; 85025; 86140; 93005; 99284; 99285; A9270; Q9967